=== PATIENT | male | born 1955 | race Caucasian/White ===

== ENCOUNTER 2018-11-23 13:12 | Day surgery (SDC) | payer BC ==
[2018-11-23] MEDS ORDERED: PROPOFOL 40 ML (14:20)
== END 2018-11-23 15:52 | disposition home or self-care (01) ==
LOC: GIL 13:12
DX: Z12.11 Encounter for screening for malignant neoplasm of colon (principal); K64.8 Other hemorrhoids; Z85.038 Personal history of other malignant neoplasm of large intestine
CPT/HCPCS: 45380; 88305